=== PATIENT | female | born 1945 | race Two or more races ===

== ENCOUNTER 2019-10-03 09:55 | Outpatient (CLI) | payer OTHER ==
[~2019-10-03 09:55] MED LIST: ASA81 MG PO; AVALIDE 150-12.1 TA1 PO; BONIVA150 MG PO; CALTRATE-600/VI1 TA1 PO; CYTOMEL5 MCG PO; HYDROCHLOROTH12.5 MG PO; LEVOTHROID100 MCG PO; LEVOTHROID112 MCG PO; TOPROL XL100 MG PO; VYTORIN 10-20 M1 TAB PO; ZOCOR20 MG PO
== END 2019-10-03 11:01 | disposition home or self-care (01) ==
LOC: NUCLEAR 09:55
DX: R06.09 Other forms of dyspnea (principal); N18.3 Chronic kidney disease, stage 3 (moderate)
CPT/HCPCS: 78580; A9540